=== PATIENT | male | born 1960 | race Caucasian/White ===

== ENCOUNTER 2019-12-13 08:42 | Day surgery (SDC) | payer OTHER ==
[2019-12-12 08:25] VITALS: BMI 30.1
[~2019-12-13 08:42] MED LIST: LACTATED RINGERS 1,000 ML IV SCH; LIDOCAINE 1% (10MG/ML) FOR IV START INTRADERMA PRN
[2019-12-13 09:29] VITALS: TEMP 97
[2019-12-13] MEDS ORDERED: LIDOCAINE 1% INJ 10MG/ML (20 ML MDV) ONE (09:49)
[2019-12-13] MEDS ORDERED: PROPOFOL 10 MG/ML 20 ML VIAL IV ONE (09:49)
--- NOTE | 2019-12-13 10:07 | P.PCN ---
Date of Procedure: 12/13/19 Procedure(s) Performed: BRIEF HISTORY: Patient is a 59-year-old pleasant white male scheduled for an elective colonoscopy as a part of screening for colorectal neoplasia. PROCEDURE PERFORMED: Colonoscopy coloscopy and biopsy. PREOPERATIVE DIAGNOSIS: Screening for colon cancer. IV sedation per Anesthesia. PROCEDURE: After informed consent was obtained, the patient, was brought into the endoscopy unit. IV sedation was administered by Anesthesia under continuous monitoring. Digital rectal examination was normal. Initially the Olympus CF-160 flexible video colonoscope was then inserted in the rectum, gradually advanced into the cecum without any difficulty. Careful examination was performed as the scope was gradually being withdrawn. Ileocecal valve and the appendiceal orifice were visualized and appeared normal. Prep was excellent. Mucosa of the cecum, ascending colon, transverse colon, descending colon, sigmoid colon, and rectum appeared normal. Retroflexion was performed in the rectum and there was a small distal rectal polyp 1 cm proximal to the dentate line which was initially jj alta by snare polypectomy and the rest of the polyp was removed by cold biopsy. The patient tolerated the procedure well. IMPRESSION: 5-6 mm distal rectal polyp status post snare polypectomy followed by biopsy RECOMMENDATIONS: Findings of this examination were discussed with the patient as well as his family. He was advised to follow with the biopsy results. If the biopsy shows an adenoma he can have a repeat coloscopy in 5 years.
[2019-12-13 10:31] VITALS: BP 135/80; PULSE 55; RESP 16
== END 2019-12-13 10:52 | disposition home or self-care (01) ==
LOC: ORWHC2ENDO 08:42
PROVIDERS: ATTEND Internal Medicine Gastroenterology
DX: Z12.11 Encounter for screening for malignant neoplasm of colon (principal); K62.1 Rectal polyp; Z88.5 Allergy status to narcotic agent; Z87.891 Personal history of nicotine dependence; K21.9 Gastro-esophageal reflux disease without esophagitis
CPT/HCPCS: 88305; 45380; 45385; J2001; J2704

== ENCOUNTER → 2022-10-16 | Outpatient (CLI) | payer OTHER ==
[2022-10-16 15:49] LABS: ALT 41 U/L (10-49); AST 32 U/L (14-35); Chol/HDL Ratio 2.55 Ratio; LDL Cholesterol,Calculated 58.1 mg/dL (0.0-131.0); VLDL Calculation 14.16 mg/dL (5.00-40.00)
== END | disposition home or self-care (01) ==
LOC: LABWHC1 09:40
PROVIDERS: ATTEND Family Medicine
DX: Z12.5 Encounter for screening for malignant neoplasm of prostate (principal); E78.5 Hyperlipidemia, unspecified
CPT/HCPCS: 36415; 80061; 84153; 84450; 84460

== ENCOUNTER → 2023-06-09 | Outpatient (CLI) | payer OTHER ==
[2023-06-09 16:30] LABS: Appearance,Urine Clear (Clear); Bilirubin,Urine Negative (Negative); Blood,Urine Negative (Negative); Color,Urine Yellow (Yellow); Ketones,Urine Negative (Negative); Nitrite,Urine Negative (Negative); Specific Gravity,Urine 1.011 (1.001-1.030); Urobilinogen,Urine 0.2 E.U./DL
[2023-06-09 16:31] LABS: HCT 43.7 % (39.6-50.0); HGB 14.4 d/dL (13.0-17.0); MCH 30.1 pg (27.0-32.0); MCV 91.4 FL (80.0-97.0); Mean Platelet Volume 10.7 FL (9.5-12.2); NRBC Per 100 WBC 0 X 10*3/uL (0.00-0.01); Platelet Count 176 X 10*3/uL (140-440); RBC 4.78 X 10*6/uL (4.40-5.60); RDW 12.8 % (11.5-14.5); WBC 4.65 X 10*3/uL (4.50-10.00)
[2023-06-09 18:06] LABS: ALT 36 U/L (10-49); AST 27 U/L (14-35); Albumin 4.5 d/dL (3.8-4.9); Alkaline Phosphatase 40 U/L (41-126); BUN/Creat Ratio 14.09 Ratio (12.00-20.00); Blood Urea Nitrogen 15.5 mg/dL (9.0-27.0); Calcium 9.6 mg/dL (8.7-10.3); Carbon Dioxide 25.9 mmol/L (21.6-31.8); Chloride 104 mmol/L (96-109); Chol/HDL Ratio 3.96 Ratio; Globulin 2.5 d/dL (1.6-3.3); Glucose 103 mg/dL (70-110); LDL Cholesterol,Calculated 101.2 mg/dL (0.0-131.0); Potassium 4.4 mmol/L (3.5-5.5); Sodium 141 mmol/L (135-145); Total Bilirubin 0.5 mg/dL (0.3-1.2)
== END | disposition home or self-care (01) ==
LOC: LABWHC1 08:35
PROVIDERS: ATTEND Family Medicine
DX: Z00.00 Encounter for general adult medical examination without abnormal findings (principal)
CPT/HCPCS: 36415; 80053; 80061; 81003; 82306; 83036; 84153; 84443; 85027

== ENCOUNTER → 2023-09-14 | Outpatient (CLI) | payer OTHER ==
--- NOTE | 2023-09-15 12:10 | MR ---
EXAMINATION TYPE: MR foot RT wo con DATE OF EXAM: 09/14/2023 COMPARISON: None HISTORY: Rt foot pain TECHNIQUE: Multiplanar, multisequence images of the right foot were acquired without contrast. FINDINGS: BONES/CARTILAGE/JOINT: Slight degenerative subchondral edema in the anterior aspect of the tibia at the tibiotalar joint wit h mild thinning of the adjacent tibial and talar articular cartilage. Remainder of the bone marrow signal is normal No joint effusion. LIGAMENTS: Thickening and increased signal within the anterior talofibular ligament, relates to age-indeterminat e sprain. The calcaneofibular ligament is normal. The deltoid ligament is normal. Spring ligament is normal. Lisfranc ligament normal. Normal plantar plates. TENDONS: Flexor tendons are normal. Extensor tendons are normal. Small amount of fluid within the common peroneal tendon sheath, may relate to tenosynovitis SOFT TISSUES: No bursal distention. No intermetatarsal bursa or soft tissue mass. Sinus tarsi is normal. Plantar fascia is normal. Neurovascular structures are normal. IMPRESSION: 1. 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 2. ATFL sprain, age-indeterminate. 3. Common peroneal tenosynovitis
== END | disposition home or self-care (01) ==
LOC: RADMRIMAIN 06:50
PROVIDERS: ATTEND Podiatrist
DX: M65.871 Other synovitis and tenosynovitis, right ankle and foot (principal); M21.6X1 Other acquired deformities of right foot; M19.071 Primary osteoarthritis, right ankle and foot; S96.011A Strain of muscle and tendon of long flexor muscle of toe at ankle and foot level, right foot, initial encounter; X58.XXXA Exposure to other specified factors, initial encounter